=== PATIENT | female | born 1970 | race Caucasian/White ===

== ENCOUNTER 2021-01-20 10:00 | Day surgery (SDCO) | payer MEDICARE, OTHER ==
[~2021-01-20] VITALS: Ht 175.3 cm; Wt 103.6 kg
[~2021-01-20 10:00] MED LIST: CELEXA10 MG PO; CYMBALTA60 MG PO; MINOCYCLINE HC100 M1 PO; MOBIC15 MG PO; MOBIC7.5 MG PO; NORCO 5-325 TA1 EACH PO; PERCOCET 5-3251 EACH PO; PRINIVIL10 MG PO; REQUIP1 MG PO; ROBAXIN500 MG PO; SYNTHROID125 MCG PO; TRAMADOL HCL50 MG PO
[2021-01-20 11:42] LABS: BASOPHIL 0.5 % (0-2); EOSINOPHIL 0.4 % (0-5); HCT 41.5 % (37.0-47.0); HGB 13.9 g/dl (12.5-16.0); INR 1.01 (0.9-1.2); MCH 30.5 pg (25.0-31.0); MCHC 33.5 g/dL (32.0-36.0); MONOCYTE 6.9 % (0-12); MPV 10.1 fL (6.0-9.5); NEUTROPHIL 54.2 % (41-80); NRBC 0; PLT 352 K/uL (150-400); PROTHROMBIN TIME 12.6 SECONDS (11.4-13.6); RBC 4.56 M/uL (4.20-5.40); RDW 12.9 % (11.5-14.0); WBC 14.8 K/uL (4.0-10.5)
[2021-01-20 11:44] LABS: D-DIMER 0.31 ug/mLFEU (0.00-0.41)
[2021-01-20 11:46] LABS: LYMPHOCYTE 37.6 % (15-48)
[2021-01-20 11:50] LABS: ALBUMIN 3.6 g/dL (3.4-5.0); BILIRUBIN - TOTAL 0.3 mg/dL (0.2-1.0); BUN/CREAT RATIO (CALC) 14.6 RATIO; CREATININE 0.96 mg/dL (0.51-0.95); GLOBULIN (CALCULATION) 3.1 g/dL; MAGNESIUM 2.1 mg/dL (1.8-2.4); POTASSIUM 4.2 mmol/L (3.5-5.1); TOTAL PROTEIN 6.7 g/dL (6.4-8.2)
--- NOTE | 2021-01-20 16:13 | NUR ---
01/20/21 Ms. Bustamante lives with her daughter. Ms. Bustamante is independent in the home and community. She works at [employer] in [employer].
--- NOTE | 2021-01-20 16:23 | NUR ---
PATIENT RECEIVED FROM ER VIA STRETCHER, REPORT FROM PAULINE. ORIENTED TO ROOM, MONITOR ATTACHED
[2021-01-20 16:59] LABS: MAGNESIUM 2.1 mg/dL (1.8-2.4)
[2021-01-21 05:49] LABS: BASOPHIL 0.7 % (0-2); EOSINOPHIL 1.3 % (0-5); HCT 35.6 % (37.0-47.0); HGB 12.1 g/dl (12.5-16.0); MCH 30.9 pg (25.0-31.0); MCV 90.8 fL (78.0-100.0); MONOCYTE 7.2 % (0-12); MPV 9.9 fL (6.0-9.5); NEUTROPHIL 35.6 % (41-80); NRBC 0; PLT 304 K/uL (150-400); RBC 3.92 M/uL (4.20-5.40); RDW 12.8 % (11.5-14.0); WBC 8.7 K/uL (4.0-10.5)
[2021-01-21 06:11] LABS: CREATININE 0.79 mg/dL (0.51-0.95); POTASSIUM 4.1 mmol/L (3.5-5.1)
[2021-01-22] MEDS ORDERED: LOPRESSOR25 MG PO (09:13)
== END 2021-01-22 10:18 | disposition home or self-care (01) ==
LOC: FER 10:00 → FTCU 14:54
PROVIDERS: Emergency Medicine; ADMIT Internal Medicine
DX: I47.1 Supraventricular tachycardia (principal); R77.8 Other specified abnormalities of plasma proteins; E03.9 Hypothyroidism, unspecified; I11.9 Hypertensive heart disease without heart failure; F41.9 Anxiety disorder, unspecified; J44.9 Chronic obstructive pulmonary disease, unspecified; F17.210 Nicotine dependence, cigarettes, uncomplicated; M19.90 Unspecified osteoarthritis, unspecified site; Z88.1 Allergy status to other antibiotic agents; Z88.8 Allergy status to other drugs, medicaments and biological substances; Z79.899 Other long term (current) drug therapy; Z20.822 Contact with and (suspected) exposure to COVID-19
CPT/HCPCS: 36415; 71045; 80048; 80053; 83735; 84439; 84443; 84484; 85025; 85379; 85610; 93005; G0378; U0002